=== PATIENT | female | born 1945 | race Hispanic/Latino ===

== ENCOUNTER → 2018-03-06 | Day surgery (SDC) | payer MEDICARE ==
[2018-03-05 09:11] LABS: BASOPHILS # (AUTO) 0.1 (0.0-0.1); BASOPHILS % 0.5 % (0.0-1.0); EOSINOPHILS # (AUTO) 0.2 (0.0-0.4); EOSINOPHILS % 2.6 % (0.0-6.0); HEMATOCRIT 41.7 % (34.2-44.1); HEMOGLOBIN 14.3 g/dL (12.0-16.0); LYMPHOCYTES # (AUTO) 1.8 (1.0-3.2); MEAN CORPUSCULAR HGB CONC 34.3 g/dL (31-35); MEAN CORPUSCULAR VOLUME 90.5 fL (81-99); MONOCYTES # (AUTO) 0.6 (0.2-0.8); MONOCYTES % 6.5 % (4.4-11.3); NEUTROPHILS # (AUTO) 6.5 (2.1-6.9); NEUTROPHILS % 70.9 % (38.7-80.0); PLATELET COUNT 231 x10e3/uL (140-360); RED BLOOD COUNT 4.61 x10e6/uL (3.6-5.1); RED CELL DISTRIBUTION WIDTH 13.2 % (11.7-14.4)
--- NOTE | 2018-03-05 10:39 | Diagnostic Imaging Report ---
PROCEDURE:CHEST 2 VIEWS TECHNIQUE:PA and lateral chest INDICATION:Preoperative evaluation for finger surgery. COMPARISON:Patients [facility], , CHEST 2 VIEWS, 03/26/2014, 9:48. FINDINGS: The lungs are clear and symmetrically inflated. No pleural effusions. Normal heart size, mediastinal contour, and pulmonary vasculature. Intact skeleton. CONCLUSION: Stable normal chest. Dictated by: Hammad Pinto M.D. on 03/05/2018 at 10:40 Electronically approved by: Hammad Pinto M.D. on 03/05/2018 at 10:40
[~2018-03-06] MED LIST: ABX; ATORVASTATIN CA40 MG PO; BACITRACIN 50,000 UNIT VIAL ONE; BUPIVACAINE HCL 0.5% INJ 30 ML VIAL INJ ONE; CEFAZOLIN SOD 2 GM/D5W 50ML 50 ML IV ONE; CIPRO250 MG PO; CLONIDINE HCL0.1 MG PO; COREG12.5 MG PO; D3 DOTS2000 UNIT PO; DEXAMETHASONE SOD PHOS INJ 4 MG/ML VIAL ONE; FENTANYL CITRATE/PF 100MCG/2 ML INJ ONE; FEOSOL325 MG; FOLIC ACID1 MG; HYDROXYZINE HCL25 MG PO; KETOROLAC TROMETHAMINE 30 MG/ML VIAL ONE; LIDOCAINE HCL 2% LOCAL INJ 5 ML SDV VIAL INJ ONE; LISINOPRIL40 MG PO; METRONIDAZOLE500 MG PO; ONDANSETRON HCL INJ 2 MG/ML VIAL ONE; PROPOFOL IV EMULSION 10 MG/ML 20 ML VIAL ONE; SEVOFLURANE INHAL SOLN 250 ML PEN BTL ONE; SYNTHROID125 MCG PO; ULTRAM50 MG PO; VITAMIN D32000 UNI1 PO
--- OUTSIDE RECORDS SUMMARY | 2018-03-06 10:18 | XMS REPORT ---
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 Allergies, Adverse Reactions, Alerts This patient has no known allergies or adverse reactions. Medications This patient has no known medications. Results Test Description Test Time Test Comments Text Results Atomic Results Result Comments CHEST 2 VIEWS [place] [address] Patient Name: NAN GONZALEZ MR #: [id number] : 1945 Age/Sex: 73/F Req #: [id number] Adm Physician: Ordered by: SAI RIZZO MD Report #: [id number] Location: OR Room/Bed: Procedure: [id number] DX/CHEST 2 VIEWS Exam Date: 03/05/18 Exam Time: 0900 REPORT STATUS: Signed PROCEDURE: CHEST 2 VIEWS TECHNIQUE: PA and lateral chest INDICATION: Preoperative evaluation for finger surgery. COMPARISON: [facility], CHEST 2 VIEWS, 03/26/2014, 9:48. FINDINGS: The lungs are clear and symmetrically inflated. No pleural effusions. Normal heart size, mediastinal contour, and pulmonary vasculature. Intact skeleton. CONCLUSION: Stable normal chest. Dictated by: Alejo Pinto M.D. on 03/05/2018 at 10:40 Electronically approved by: Alejo Pinto M.D. on 03/05/2018 at 10: 40 Dictated By: ALEJO PINTO MD [id number] Transcribed By: ROGELIO on 03/05/18 1041 COPY TO: SAI RIZZO MD
--- NOTE | 2018-03-07 06:30 | Operative Report ---
DATE OF PROCEDURE: March 06, 2018 PREOPERATIVE DIAGNOSIS: Right small finger displaced proximal phalanx fracture. POSTOPERATIVE DIAGNOSIS: Right small finger displaced proximal phalanx fracture. OPERATION/PROCEDURE PERFORMED: The patient underwent a closed reduction and percutaneous pinning of the right small finger proximal phalanx fracture. CHEMICAL PRODUCTION TECHNICIAN: None. ANESTHESIA: General endotracheal intubation anesthesia. IV FLUIDS: Per the anesthesia record. BRIEF DESCRIPTION OF THE PATIENT'S OPERATIVE PROCEDURE: Ms. Corona was taken to the operating room and placed in the supine on the operating table. Following induction of general anesthesia, as well as endotracheal intubation, the patient's right upper extremity was examined under anesthesia. She was found to have swelling and bruising involving her small finger. There was also an angular deformity involving the right small finger. Fluoroscopic evaluation of the patient's hand demonstrated a proximal phalanx fracture with both dorsal malalignment, as well as abduction of the small finger. The patient's upper extremity was prepped and draped in the standard surgical fashion. The small finger was manipulated repeatedly under anesthesia. This resulted ultimately in acceptable alignment of the patient's small finger injury. Two 0.045 K-wires were then advanced from distal to proximal capturing the patient's small finger in its reduced position. The position of this K-wire, as well as reduction of the fracture was the assessed fluoroscopically and found to be appropriate. The patient's pin sites were then dressed sterilely. An aluminum splint was contoured to the small finger. The patient was then awakened and taken to the postanesthesia care unit in stable condition. Job#: [id number] RAMO
== END | disposition home or self-care (01) ==
LOC: OR 10:15
PROVIDERS: ATTEND Specialist
DX: S62.616A Displaced fracture of proximal phalanx of right little finger, initial encounter for closed fracture (principal); K21.9 Gastro-esophageal reflux disease without esophagitis; I10 Essential (primary) hypertension; E03.9 Hypothyroidism, unspecified; E78.00 Pure hypercholesterolemia, unspecified
CPT/HCPCS: 26727; 36415; 71046; 76000; 85025; 93005; J1100; J1885; J2001; J2405

== ENCOUNTER 2023-04-15 12:07 | Emergency (ER) | payer MEDICARE ==
[~2023-04-15] VITALS: Ht 154.9 cm; Wt 81.6 kg
[~2023-04-15 12:07] MED LIST changes: -BACITRACIN 50,000 UNIT VIAL ONE; -BUPIVACAINE HCL 0.5% INJ 30 ML VIAL INJ ONE; -CEFAZOLIN SOD 2 GM/D5W 50ML 50 ML IV ONE; -DEXAMETHASONE SOD PHOS INJ 4 MG/ML VIAL ONE; -FENTANYL CITRATE/PF 100MCG/2 ML INJ ONE; -KETOROLAC TROMETHAMINE 30 MG/ML VIAL ONE; -LIDOCAINE HCL 2% LOCAL INJ 5 ML SDV VIAL INJ ONE; -ONDANSETRON HCL INJ 2 MG/ML VIAL ONE; -PROPOFOL IV EMULSION 10 MG/ML 20 ML VIAL ONE; -SEVOFLURANE INHAL SOLN 250 ML PEN BTL ONE
[2023-04-15 12:27] VITALS: O2SAT 99
[2023-04-15 12:56] LABS: BASOPHILS % 0.3 % (0.0-1.0); EOSINOPHILS # (AUTO) 0.2 (0.0-0.4); EOSINOPHILS % 1.6 % (0.0-6.0); HEMATOCRIT 39.3 % (34.2-44.1); HEMOGLOBIN 13.7 g/dL (12.0-16.0); LYMPHOCYTES # (AUTO) 1.6 (1.0-3.2); LYMPHOCYTES % 17.1 % (18.0-39.1); MEAN CORPUSCULAR HEMOGLOBIN 31.2 pg (28-32); MEAN CORPUSCULAR HGB CONC 34.9 g/dL (31-35); MEAN CORPUSCULAR VOLUME 89.5 fL (81-99); MONOCYTES # (AUTO) 0.6 (0.2-0.8); MONOCYTES % 6.9 % (4.4-11.3); NEUTROPHILS # (AUTO) 6.8 (2.1-6.9); NEUTROPHILS % 73.9 % (38.7-80.0); PLATELET COUNT 200 x10e3/uL (140-360); RED BLOOD COUNT 4.39 x10e6/uL (3.6-5.1); RED CELL DISTRIBUTION WIDTH 13.2 % (11.7-14.4)
[2023-04-15 13:00] LABS: INR 0.93
[2023-04-15 13:01] LABS: PARTIAL THROMBOPLASTIN TIME 28.8 seconds (23.8-35.5)
[2023-04-15 13:07] LABS: ALBUMIN/GLOBULIN RATIO 1.1 (0.8-2.0); ANION GAP 15.3 mmol/L (8-16); CALCIUM 9.9 mg/dL (8.4-10.2); CREATININE, SERUM 0.81 mg/dL (0.57-1.11); POTASSIUM 4.3 mmol/L (3.5-5.1)
== END 2023-04-15 14:47 | disposition home or self-care (01) ==
LOC: ER 12:22
DX: M79.604 Pain in right leg (principal); I83.91 Asymptomatic varicose veins of right lower extremity; R60.9 Edema, unspecified; I10 Essential (primary) hypertension; E78.5 Hyperlipidemia, unspecified; E03.9 Hypothyroidism, unspecified; E78.00 Pure hypercholesterolemia, unspecified
CPT/HCPCS: 36415; 80053; 85025; 85610; 85730; 93926; 93971; 99284

== ENCOUNTER 2023-05-03 14:00 | Outpatient (RCR) | payer MEDICARE | END 2023-05-04 | LOC: PT 14:00 | PROVIDERS: ATTEND Specialist | DX: M17.11 Unilateral primary osteoarthritis, right knee (principal) ==